=== PATIENT | male | born 1935 | race Caucasian/White ===

== ENCOUNTER 2016-08-27 07:58 | Outpatient (CLI) | payer BC, MEDICARE | END 2016-08-27 07:59 | disposition home or self-care (01) | DX: I10 Essential (primary) hypertension (principal); R73.03 Prediabetes; E78.00 Pure hypercholesterolemia, unspecified ==

== ENCOUNTER 2019-03-11 08:00 | Outpatient (CLI) | payer MEDICARE, OTHER ==
[2019-03-11 18:16] LABS: HB2 TOTAL 15.7 g/dL; HEMOGLOBIN A1C 0.82 g/dL; HEMOGLOBIN A1C % 6.9 % (4.6-6.2)
== END 2019-03-11 23:59 | disposition home or self-care (01) ==
LOC: LAB.S 08:00
PROVIDERS: ATTEND Family Medicine
DX: E11.59 Type 2 diabetes mellitus with other circulatory complications (principal)
CPT/HCPCS: 36415; 83036